=== PATIENT | female | born 1985 | race American Indian/Alaskan Native ===

== ENCOUNTER → 2018-05-14 08:54 | Outpatient (CLI) | payer MEDICAID, SELFPAY ==
--- NOTE | 2018-05-14 | DI.US.S_ITS ---
PROCEDURE: US OB >= 14 WEEKS FETUS INDICATIONS: ANATOMY SCAN OUTSIDE/PRIOR DATING DATA: Last menstrual period (LMP): 01/01/18. LMP-based estimated date of delivery (LYN): 09/28/18. First dating scan (date and location): 05/14/18. Estimated date of delivery (LYN) from first dating scan: 10/08/18. TECHNIQUE: Real-time scanning was performed of the fetus, with image documentation and biometric measurements. Endovaginal scanning: No COMPARISON: None. FINDINGS: General: A single living intrauterine gestation is present. Presentation: Breech. Placenta: Placental position is anterior, without previa. Amniotic fluid index: 12.0 cm, normal range is 5-24 cm. heart rate: 144 beats per minute. Maternal cervical canal: 3.6 cm long. Normal lower limit is 2.5 cm. biometrics: Biparietal diameter: 19 weeks 2 days Head circumference: 19 weeks 1 day Abdominal circumference: 19 weeks 3 days Femur length: 18 weeks 5 days Estimated gestational age from initial scan: not applicable. Composite gestational age from present scan: 19 weeks Estimated weight and percentile: 273 g; 50th percentile based on LMP Measurement variability for biometric dating: +/- 7 days from 14 weeks to 15 weeks 6 days gestation, +/- 10 days from 16 weeks to 21 weeks 6 days gestation, +/- 2 weeks from 22 weeks to 27 weeks 6 days gestation, +/- 3 weeks for 28 weeks gestation or later. weight reference: 4500 g or EFW >90/95% is considered macrosomia or large for gestational age. EFW <10% is small for gestational age. EFW 5% or less is considered intra-uterine growth restriction. Anatomic survey: Neuro: Ventricles are non-dilated at less than 10 mm. Cisterna magna is normal at 3-11 mm. Cerebellum is normal in size and morphology. Nuchal skin fold: Normal at less than 6 mm between 14-21 weeks gestational age. Face: Nose and lips, facial profile are normal. Spine: No evidence for spina bifida. Heart: 4-chambered heart is present, with normal ventricular outflow tracts. Diaphragm: Diaphragm is intact. Stomach: Left-sided stomach is present. Kidneys: No hydronephrosis. Normal is less than 5 mm in 2nd trimester, less than 7 mm in 3rd trimester. Cord: 3-vessel cord has orthotopic insertion. Bladder: Normal in size. Extremities: All 4 extremities identified. IMPRESSION: 1. Single living IUP with mean composite gestational age of 19 weeks 0 days corresponding to ultrasound LYN of 10/08/2018. 2. Normal anatomic survey. Dictated by: Jose Hurtado [facility] Interpreted: Rip Gamble MD on 05/15/2018 at 11:01 Approved by: Rip Gamble M.D. on 05/15/2018 at 22:03
== END ==
PROVIDERS: PCP Registered Nurse Women's Health Care, Ambulatory; Visit Provider Family Medicine
DX: Z36.89 Encounter for other specified antenatal screening (principal); Z3A.19 19 weeks gestation of pregnancy
CPT/HCPCS: 76801; 76811

== ENCOUNTER → 2018-09-12 16:21 | Outpatient (ROUT) | payer MEDICAID, SELFPAY | PROVIDERS: PCP Registered Nurse Women's Health Care, Ambulatory; Visit Provider Family Medicine | DX: Z34.90 Encounter for supervision of normal pregnancy, unspecified, unspecified trimester (principal) | CPT/HCPCS: 87081 ==

== ENCOUNTER 2018-10-16 04:22 | Inpatient (IN) | payer MEDICAID, SELFPAY ==
[2018-10-16 05:17] LABS: Add Manual Diff / Slide Review NO; Basophils Absolute Auto 100 /uL (0-100); Basophils Percent Auto 0.5 % (0-2); Eosinophils Absolute Auto 100 /uL (0-450); Eosinophils Percent Auto 0.6 % (2-4); Hematocrit 42.1 % (36-46); Hemoglobin 14.3 g/dL (12.0-16.0); Lymphocytes Absolute Auto 1500 /uL (1100-4500); Mean Corpuscular Hemoglobin 31.9 PG (26-34); Mean Corpuscular Volume 93.7 fL (80-100); Monocytes Absolute Auto 800 /uL (0-900); Monocytes Percent Auto 5.5 % (3-14); Neutrophils Absolute Auto 12600 /uL (1500-7000); Neutrophils Percent Auto 83.4 % (50-75); Platelet Count 284 X10^3/uL (150-400); Red Blood Cell Count 4.49 X10^6/uL (4.0-5.2); Red Cell Distribution Width 13.1 % (11.6-14.8); White Blood Cell Count 15.1 X10^3/uL (4.5-11.0)
[2018-10-16] MEDS: LACTATED RINGERS 1,000 ML 100 ML IV (06:00)
[2018-10-16] MEDS: OXYTOCIN 10 UNIT/ML VIAL IM (06:29)
--- NOTE | 2018-10-16 07:02 | PM.OBHP.1 ---
OB HPI Date/Time Date of admission: 10/16/18 Date Patient Seen: 10/16/18 Time Patient Seen: 05:55 History of Present Condition Chief complaint: evaluation of labor : 2 Para: 1 Estimated Date of Delivery: 10/08/18 Estimated Gestational Age (weeks): 41 we Narrative: Natasha Stephens is a 33 year old female with history of herpes genital otherwise unremarkable who presents with rupture of membranes at 2:30 a.m. this morning. clear fluid. No other changes. Started having increasingly intense and contractions with no other changes. Presented to labor and delivery. Was 3-4 cm. Requesting epidural. First epidural did not work very well. Second epidural was okay but rapid delivery was ensued. otherwise was uncomplicated. Growth was good. No other major issues. Patient has a history of ADD and smoking review other issues. Indications Indication for induction OB: post dates History of Present care: good care Dating criteria: LMP confirmed by 1st trimester US Ultrasounds: normal mid trimester US Obstetrical complications: none Medical complications: none Narrative: History of genital herpes Preadmission Labs Blood type: O (+) positive -: Antibody screen: negative, GBS status: negative, HBsAG: negative, HIV: negative, HSV 1: negative, HSV 2: positive and RPR/VDLR: negative -: Chlamydia screen: not detected and Gonorrhea screen: not detected -: Rubella: immune and Varicella: immune HCT: 36.9 HCAB: reactive PAP: Normal 1 hr GTT: 100 Prior (ies) History: [id number] weeks 4 hour labor epidural male 7 lb 8 oz Evaluation Evaluation Laboratory results: Laboratory Tests 10/16/18 10/16/18 05:00 05:00 WBC 15.1 H RBC 4.49 Hgb 14.3 Hct 42.1 MCV 93.7 MCH 31.9 MCHC 34.0 RDW 13.1 Plt Count 284 Neut % (Auto) 83.4 H Lymph % (Auto) 10.0 L [place] % (Auto) 5.5 Eos % (Auto) 0.6 L Baso % (Auto) 0.5 Neut # (Auto) 10975 H Lymph # (Auto) 1500 [place] # (Auto) 800 Eos # (Auto) 100 Baso # (Auto) 100 Blood Type O Positive Antibody Screen Negative Meds Home Medications Medication Instructions Recorded Confirmed Type IBUPROFEN (Motrin / Advil) 600 mg PO #0 02/02/10 History Allergies Allergy/AdvReac Type Severity Reaction Status Date / Time No Known Allergies Allergy Unknown Unverified 08/07/17 11:52 [NO KNOWN ALLERGIES] Exam Vital Signs (past 8 hours): Alert female lying in bed intermittently screaming in no acute distress Lungs are clear. Heart regular rate and rhythm. Abdomen is gravid vertex SVT complete +1 vertex ruptured. Extremities without cyanosis clubbing edema. Objective Labs Result Diagrams: 10/16/18 05:00 Labs: Laboratory Results - last 24 hr 10/16/18 10/16/18 05:00 05:00 WBC 15.1 H RBC 4.49 Hgb 14.3 Hct 42.1 MCV 93.7 MCH 31.9 MCHC 34.0 RDW 13.1 Plt Count 284 Neut % (Auto) 83.4 H Lymph % (Auto) 10.0 L [place] % (Auto) 5.5 Eos % (Auto) 0.6 L Baso % (Auto) 0.5 Neut # (Auto) 62440 H Lymph # (Auto) 1500 [place] # (Auto) 800 Eos # (Auto) 100 Baso # (Auto) 100 Blood Type O Positive Antibody Screen Negative Assessment and Plan Assessment and Plan Assessment and Plan narrative: Forty-one week intrauterine with rupture and complete prepare for
--- NOTE | 2018-10-16 07:07 | P.HPOB_ITS ---
OB HPI Date/Time Date of admission: 10/16/18 Date Patient Seen: 10/16/18 Time Patient Seen: 05:55 History of Present Condition Chief complaint: evaluation of labor : 2 Para: 1 Estimated Date of Delivery: 10/08/18 Estimated Gestational Age (weeks): 41 we Narrative: Natasha Stephens is a 33 year old female with history of herpes genital otherwise unremarkable who presents with rupture of membranes at 2:30 a.m. this morning. clear fluid. No other changes. Started having increasingly intense and contractions with no other changes. Presented to labor and delivery. Was 3-4 cm. Requesting epidural. First epidural did not work very well. Second epidural was okay but rapid delivery was ensued. otherwise was uncomplicated. Growth was good. No other major issues. Patient has a history of ADD and smoking review other issues. Indications Indication for induction OB: post dates History of Present care: good care Dating criteria: LMP confirmed by 1st trimester US Ultrasounds: normal mid trimester US Obstetrical complications: none Medical complications: none Narrative: History of genital herpes Preadmission Labs Blood type: O (+) positive -: Antibody screen: negative, GBS status: negative, HBsAG: negative, HIV: negative, HSV 1: negative, HSV 2: positive and RPR/VDLR: negative -: Chlamydia screen: not detected and Gonorrhea screen: not detected -: Rubella: immune and Varicella: immune HCT: 36.9 HCAB: reactive PAP: Normal 1 hr GTT: 100 Prior (ies) History: [id number] weeks 4 hour labor epidural male 7 lb 8 oz Evaluation Evaluation Laboratory results: Laboratory Tests 10/16/18 10/16/18 05:00 05:00 WBC 15.1 H RBC 4.49 Hgb 14.3 Hct 42.1 MCV 93.7 MCH 31.9 MCHC 34.0 RDW 13.1 Plt Count 284 Neut % (Auto) 83.4 H Lymph % (Auto) 10.0 L [place] % (Auto) 5.5 Eos % (Auto) 0.6 L Baso % (Auto) 0.5 Neut # (Auto) 14794 H Lymph # (Auto) 1500 [place] # (Auto) 800 Eos # (Auto) 100 Baso # (Auto) 100 Blood Type O Positive Antibody Screen Negative Meds Home Medications Medication Instructions Recorded Confirmed Type IBUPROFEN (Motrin / Advil) 600 mg PO #0 02/02/10 History Allergies Allergy/AdvReac Type Severity Reaction Status Date / Time No Known Allergies Allergy Unknown Unverified 08/07/17 11:52 [NO KNOWN ALLERGIES] Exam Vital Signs (past 8 hours): Alert female lying in bed intermittently screaming in no acute distress Lungs are clear. Heart regular rate and rhythm. Abdomen is gravid vertex SVT complete +1 vertex ruptured. Extremities without cyanosis clubbing edema. Objective Labs Result Diagrams: 10/16/18 05:00 Labs: Laboratory Results - last 24 hr 10/16/18 10/16/18 05:00 05:00 WBC 15.1 H RBC 4.49 Hgb 14.3 Hct 42.1 MCV 93.7 MCH 31.9 MCHC 34.0 RDW 13.1 Plt Count 284 Neut % (Auto) 83.4 H Lymph % (Auto) 10.0 L [place] % (Auto) 5.5 Eos % (Auto) 0.6 L Baso % (Auto) 0.5 Neut # (Auto) 37780 H Lymph # (Auto) 1500 [place] # (Auto) 800 Eos # (Auto) 100 Baso # (Auto) 100 Blood Type O Positive Antibody Screen Negative Assessment and Plan Assessment and Plan Assessment and Plan narrative: Forty-one week intrauterine with rupture and complete prepare for
[2018-10-16] MEDS: miSOPROStol 200 MCG TABLET 800 MCG PR (07:08)
--- NOTE | 2018-10-16 07:16 | PM.OBPRVD ---
Delivery date: 10/16/18 Intrapartal events: None Cervical ripening method: none Induction method: none Delivery monitor: external FHT Route of delivery: Delivery repair: vicryl Estimated blood loss (mL): 350 Anesthesia type: Epidural Complications: none Narrative: patient presented at 3 cm. Rupture at 2:30 a.m. with clear fluid. No other changes. requesting epidural. Epidural was placed but was not effective and pulled. Patient was rapidly progressing and 2nd epidural was placed. Shortly after epidural was placed patient was complete and +1. heart monitor was reactive although discolorations into the 80s. Moderate bleeding. Patient was rotated onto her back. Push 4 times and was undertaken. Infant had a body cord which was reduced. no other significant change. Child was then delivered over 1st degree left labial tear and second-degree midline tear. Delivered on mom's abdomen. No resuscitation was crying aggressively. Cord was cut by dad. After clamping. Placenta delivered spontaneously intact 3 vessels. Did have some calcification. Anesthesia was 1% lidocaine was injected. Repair was with 3 0 Vicryl both labial and midline tear. Usual manner. Patient tolerated well. Initially bleeding 200 cc. Patient then had several clots and aggressive massage and Cytotec were placed. Estimated 350 cc at this time. Mother and infant otherwise were stable condition. Plan for aftercare: Will watch closely for bleeding but otherwise doing well. Routine care
[2018-10-16] MEDS: METHYLERGONOVINE 0.2 MG/ML VIAL IM (07:23)
--- NOTE | 2018-10-16 07:24 | P.PCNOB_ITS ---
Delivery date: 10/16/18 Intrapartal events: None Cervical ripening method: none Induction method: none Delivery monitor: external FHT Route of delivery: Delivery repair: vicryl Estimated blood loss (mL): 350 Anesthesia type: Epidural Complications: none Narrative: patient presented at 3 cm. Rupture at 2:30 a.m. with clear fluid. No other changes. requesting epidural. Epidural was placed but was not effective and pulled. Patient was rapidly progressing and 2nd epidural was placed. Shortly after epidural was placed patient was complete and +1. heart monitor was reactive although discolorations into the 80s. Moderate bleeding. Patient was rotated onto her back. Push 4 times and was undertaken. Infant had a body cord which was reduced. no other significant change. Child was then delivered over 1st degree left labial tear and second- degree midline tear. Delivered on mom's abdomen. No resuscitation was crying aggressively. Cord was cut by dad. After clamping. Placenta delivered spontaneously intact 3 vessels. Did have some calcification. Anesthesia was 1% lidocaine was injected. Repair was with 3 0 Vicryl both labial and midline tear. Usual manner. Patient tolerated well. Initially bleeding 200 cc. Patient then had several clots and aggressive massage and Cytotec were placed. Estimated 350 cc at this time. Mother and otherwise were stable condition. Plan for aftercare: Will watch closely for bleeding but otherwise doing well. Routine care
[2018-10-16 09:01] VITALS: TEMP 37.3
[2018-10-16] MEDS: IBUPROFEN 600 MG TABLET PO ×2 (09:01→18:13)
[2018-10-16] MEDS: DOCUSATE 250 MG CAPSULE PO (09:01)
[2018-10-16 09:02] VITALS: TEMP 37.3
[2018-10-16] MEDS: HYDROCODONE/ACET 5/325 TABLET 1 TAB PO ×5 (09:02→22:24)
[2018-10-16 11:14] VITALS: TEMP 37.1
[2018-10-16] MEDS: DERMOPLAST SPRAY 20% 60 ML 1 SPRAY TOP (12:24)
[2018-10-17] MEDS: IBUPROFEN 600 MG TABLET PO ×2 (03:33→10:31)
[2018-10-17] MEDS: HYDROCODONE/ACET 5/325 TABLET 2 TAB PO ×3 (03:34→11:48)
[2018-10-17 07:41] LABS: Hematocrit 36.9 % (36-46); Hemoglobin 12.5 g/dL (12.0-16.0)
[2018-10-17] MEDS: DOCUSATE 250 MG CAPSULE PO (07:54)
--- NOTE | 2018-10-17 08:06 | PM.OBDS.1 ---
Discharge Providers Date of admission: 10/16/18 04:22 Discharge Date: 10/17/18 Primary care physician: Dr. Estrada Pruett Consults: 10/16/18 05:09 Consult to Anesthesiology Urgent Comment: Consulting Provider: Maryann Junior Reason for consultation: Labor pain management 10/16/18 06:52 Consult to [employer] Routine Comment: 10/16/18 06:54 Consult to [employer]isher Routine Comment: Discharge provider: Estrada Pruett MD Summary Time Spent with Patient Total time spent providing and/or coordinating discharge services: 25 minutes Patient overall did well. Status post delivery she had moderate bleeding. Cytotec was placed and Pitocin was given. Patient still has some moderate bleeding and aggressive massage was done and Methergine was given x2 doses. Otherwise did well. No further problems. Bleeding stabilized and she is doing well. Pain has been pretty well controlled. Having some mild hemorrhoid pain. No other significant change. She is not going to breastfeed. She otherwise has no other significant change. Overall ceiling well. Emotionally feeling well. Minimal bleeding today. Minimal pain. Up moving around. Has been urinating well. Lot like to go home. Usual discussion had. Questions answered. Signs and symptoms of concern discussed. She understands follow up with me as scheduled in 6 weeks sooner if any change. Thinking about IUD. Objective Labs Result Diagrams: 10/17/18 07:30 Labs: Laboratory Results - last 24 hr 10/17/18 07:30 Hgb 12.5 Hct 36.9 Discharge Plan Discharge Plan Patient Disposition: Home Discharge Med Rec/Prescriptions Prescriptions: New hydrocodone-acetaminophen 5-325 mg Tablet 1 tab PO Q4HR Qty: 20 RF: 0 ibuprofen 600 mg Tablet 600 mg PO Q6HR PRN (Reason: Pain, Mild (1-3)) Qty: 90 RF: 0 docusate sodium 250 mg Capsule 250 mg PO DAILY Qty: 60 RF: 0 hydrocortisone [Anusol-HC] 2.5 % cream with perineal applicator 1 applictn ND BID-QID PRN (Reason: hemorrhoids) Qty: 30 RF: 0 Follow up/Referrals: Sylvia Olsen ARNP [Primary Care Provider] - Estrada Pruett MD [Physician] - 6 Weeks Provider Discharge Instructions Diet comment: as ususal Activity: as tolerated no sex for six weeks Skin/Wound/Dressing Care Report to your healthcare provider any signs of infection, such as:: chills, fever, night sweats and increased pain Discharge Data Primary Care Provider: Sylvia Olsen Attending Provider: Estrada Pruett Date/Time: 10/16/18 04:22
[2018-10-17 11:03] VITALS: BP 118/76; PULSE 75; RESP 16; TEMP 36.2
== END 2018-10-17 13:15 | disposition home or self-care (01) | DRG 806 ==
PROVIDERS: Admitting Provider Family Medicine; PCP Registered Nurse Women's Health Care, Ambulatory; Visit Provider Family Medicine
DX: O48.0 Post-term pregnancy (principal); O98.32 Other infections with a predominantly sexual mode of transmission complicating childbirth; Z37.0 Single live birth; B00.9 Herpesviral infection, unspecified; Z3A.41 41 weeks gestation of pregnancy; O70.0 First degree perineal laceration during delivery
CPT/HCPCS: 01967; 36415; 59050; 85014; 85018; 85025; 86850; 86900; 86901; G0379; J2210; J2590; S0191

== ENCOUNTER → 2021-07-25 14:41 | Outpatient (CLI) | payer MEDICAID, SELFPAY ==
--- NOTE | 2021-07-25 | DI.US.S_ITS ---
PROCEDURE: US PELVIC COMPLETE INDICATIONS: CHECK IUD PLACEMENT TECHNIQUE: Real-time scanning was performed of the pelvic organs, with image documentation. Additional endovaginal scanning was necessary due to incomplete visualization of the adnexal and endometrial structures by transabdominal scanning. COMPARISON: [facility], , PELVIC COMPLETE, 08/11/2015, 10:09. FINDINGS: Uterus: Uterus is anteverted and normal in size at 7.6 x 3.5 x 4.8 cm. The myometrium is homogeneous. The endometrium measures 3.9 mm combined thickness. Intrauterine device is not seen. Ovaries: The right ovary measures 3.7 x 2.5 x 3.0 cm. The left ovary measures 3.3 x 1.8 x 3.0 cm. The ovaries have a normal sonographic appearance. Less than 12 follicles can be seen in each ovary. No adnexal masses are seen. Other: No pathologic free abdominal or pelvic fluid. IMPRESSION: 1. No intrauterine device is seen. 2. Otherwise negative examination. We strive to produce accurate, complete, and clear reports of imaging services. To assist us in improving patient care, this report was composed using standard report templates and voice recognition software. Therefore, it may contain abnormal punctuation, insertions and/or omissions. Occasional wrong-word or sound-alike substitutions may occur. Though we review the report and make efforts to correct it, we do recommend that the report be read carefully in proper context to recognize any text inaccuracies. Dictated by: Monica Montoya M.D. on 07/25/2021 at 15:31 Approved by: Monica Montoya M.D. on 07/25/2021 at 16:55
== END ==
PROVIDERS: PCP Family Medicine; Referring Provider Family Medicine; Visit Provider Family Medicine
DX: Z30.431 Encounter for routine checking of intrauterine contraceptive device (principal)
CPT/HCPCS: 76830; 76856

== ENCOUNTER → 2022-08-16 16:59 | Outpatient (CLI) | payer OTHER, MEDICAID, SELFPAY ==
--- NOTE | 2022-08-16 17:01 | DI.RAD.S_ITS ---
PROCEDURE: XR ABDOMEN 1V INDICATIONS: IUD placement TECHNIQUE: One view of the abdomen acquired. COMPARISON: None. FINDINGS: Surgical changes and devices: None. Bowel: Bowel gas pattern is normal. Soft tissues: No suspicious abdominal calcifications. Visualized solid organ contours appear normal in size. Bones: No suspicious bony lesions. IMPRESSION: No intrauterine device is visualized on this study. No evidence of bowel obstruction or gross free air. Dictated by: Surinder Green M.D. on 08/16/2022 at 17:38 Approved by: Surinder Green M.D. on 08/16/2022 at 17:38
== END ==
PROVIDERS: PCP Family Medicine; Referring Provider Registered Nurse; Visit Provider Registered Nurse
DX: Z30.431 Encounter for routine checking of intrauterine contraceptive device (principal)
CPT/HCPCS: 74018

== ENCOUNTER → 2024-07-30 14:07 | Outpatient (CLI) | payer MEDICAID, SELFPAY ==
--- NOTE | 2024-07-30 | DI.RAD.S_ITS ---
PROCEDURE: XR ANKLE LT MIN 3V INDICATIONS: ANKLE PAIN TECHNIQUE: 3 views of the ankle were acquired. COMPARISON: None. FINDINGS: Bones: No fractures or dislocations. Ankle mortise is normally aligned. No suspicious bony lesions. Soft tissues: No tibiotalar joint effusion. Achilles tendon appears normal. IMPRESSION: No acute osseous abnormality. If pain persists with conservative management, consider repeat x-ray in 10-14 days or cross-sectional imaging. Dictated by: Tito Sam M.D. on 07/30/2024 at 15:50 Approved by: Tito Sam M.D. on 07/30/2024 at 15:52
--- NOTE | 2024-07-30 14:11 | DI.RAD.S_ITS ---
PROCEDURE: XR FOOT RT 2V INDICATIONS: FOOT PAIN TECHNIQUE: 2 views of the foot were acquired. COMPARISON: None. FINDINGS: Bones: No fractures or dislocations. No suspicious bony lesions. Mild pes planus alignment. Soft tissues: No tibiotalar joint effusion. Achilles tendon appears normal. IMPRESSION: No acute osseous abnormalities. Mild pes planus alignment. Dictated by: Tito Sam M.D. on 07/30/2024 at 15:52 Approved by: Tito Sam M.D. on 07/30/2024 at 15:53
--- NOTE | 2024-07-30 14:11 | DI.RAD.S_ITS ---
PROCEDURE: XR FOOT LT 2V INDICATIONS: FOOT PAIN TECHNIQUE: 2 views of the foot were acquired. COMPARISON: None. FINDINGS: Bones: No fractures or dislocations. No suspicious bony lesions. Soft tissues: No tibiotalar joint effusion. Achilles tendon appears normal. IMPRESSION: No acute osseous abnormality. If pain persists with conservative management, consider repeat x-ray in 10-14 days or cross-sectional imaging. Dictated by: Tito Sam M.D. on 07/30/2024 at 15:53 Approved by: Tito Sam M.D. on 07/30/2024 at 15:55
--- NOTE | 2024-07-30 14:12 | DI.RAD.S_ITS ---
PROCEDURE: XR ANKLE RT MIN 3V INDICATIONS: ANKLE PAIN TECHNIQUE: 3 views of the ankle were acquired. COMPARISON: None. FINDINGS: Bones: No fractures or dislocations. Ankle mortise is normally aligned. No suspicious bony lesions. Soft tissues: No tibiotalar joint effusion. Achilles tendon appears normal. IMPRESSION: No acute osseous abnormality. If pain persists with conservative management, consider repeat x-ray in 10-14 days or cross-sectional imaging. Dictated by: Ttio Sam M.D. on 07/30/2024 at 15:52 Approved by: Tito Sam M.D. on 07/30/2024 at 15:52
== END ==
PROVIDERS: PCP Family Medicine; Referring Provider Family Medicine; Visit Provider Family Medicine
DX: M21.41 Flat foot [pes planus] (acquired), right foot (principal); M79.671 Pain in right foot; M79.672 Pain in left foot; M25.571 Pain in right ankle and joints of right foot; M25.572 Pain in left ankle and joints of left foot
CPT/HCPCS: 73610; 73620

== ENCOUNTER → 2025-02-19 16:06 | Outpatient (CLI) | payer MEDICAID, SELFPAY ==
--- NOTE | 2025-02-19 16:08 | DI.RAD.S_ITS ---
PROCEDURE: XR FOOT LT MIN 3V INDICATIONS: TOE PAIN TECHNIQUE: 3 views of the foot were acquired. COMPARISON: [facility], , XR FOOT LT 2V, 07/30/2024, 14:11. FINDINGS: Bones: Moderate pes planus and mild hammertoe deformities 2nd through 5th digits. No focal osseous lesions Joints: The joint spaces are normal in width and alignment without arthritic change. Soft tissues: Moderate forefoot midfoot soft tissue swelling IMPRESSION: Chronic findings. Forefoot midfoot soft tissue swelling likely edema Dictated by: David Seymour M.D. on 02/22/2025 at 12:38 Approved by: David Seymour M.D. on 02/22/2025 at 12:39
== END ==
LOC: RAD 16:07
PROVIDERS: PCP Family Medicine; Referring Provider Family Medicine; Visit Provider Family Medicine
DX: M21.42 Flat foot [pes planus] (acquired), left foot (principal); M20.42 Other hammer toe(s) (acquired), left foot; M79.675 Pain in left toe(s); M79.89 Other specified soft tissue disorders
CPT/HCPCS: 73630